=== PATIENT | male | born 1995 | race African-American/Black ===

== ENCOUNTER 2020-01-22 13:44 | Emergency (ER) | payer SELFPAY ==
[~2020-01-22] VITALS: Ht 165.1 cm; Wt 68.0 kg
[2020-01-22 13:52] VITALS: BP 133/77
[2020-01-22] MEDS ORDERED: LIDOCAINE /MPF 1% VIAL 5 ML VIAL ONE ×2 (14:23→14:35)
[2020-01-22] MEDS ORDERED: LIDOCAINE HCL/MPF 1% 30 ML VIAL IJ ONE (15:08)
[2020-01-22] MEDS ORDERED: oxyCODONE/APAP (5/325 MG) 1 UDTAB TABLET ONE (15:08)
[2020-01-22] MEDS ORDERED: IBUPROFEN 600 MG TABLET ONE (15:10)
[2020-01-22] MEDS: oxyCODONE/APAP (5/325 MG) 1 UDTAB TABLET PO ONE (15:18)
[2020-01-22] MEDS: IBUPROFEN 600 MG TABLET PO ONE (15:18)
[2020-01-22] MEDS: LIDOCAINE HCL/PF 1% 30 ML SDV IJ ONE (15:18)
== END 2020-01-22 15:33 | disposition home or self-care (01) ==
LOC: ER 13:48
DX: L05.01 Pilonidal cyst with abscess (principal)
CPT/HCPCS: 10160; 99284; A6403; A6407; J3490 ×3